=== PATIENT | female | born 1960 | race Caucasian/White ===

== ENCOUNTER 2018-04-15 09:26 | Emergency (ER) | payer OTHER ==
[~2018-04-15] VITALS: Ht 160 cm; Wt 62.6 kg
--- NOTE | ~2018-04-15 | EKG ---
[address] [address] ELECTROCARDIOGRAM REPORT Name: BOUCHRA MONTANEZ Room #: [facility]#: [id number] Admission: 04/15/18 Attend Phys: Discharge: 04/15/18 Date of : 60 Report #: [id number] THIS REPORT FOR: //name// [facility] ED Test Date: 2018-04-15 Test Time: 09:58:32 Pat Name: BOUCHRA MONTANEZ Department: Room: Gender: F Coating Machine Operator: latrice : 1960 Requested By: Mirna Vidal Order Number: [id number] MD: Aditya Cyr Measurements Intervals [place] Rate: 98 P: 54 ND: 139 QRS: 41 QRSD: 98 T: 33 QT: 355 QTc: 454 Interpretive Statements Sinus rhythm Normal tracing No previous ECG available for comparison Electronically Signed On 04-15-2018 13:12:42 CDT by Aditya Cyr [email or web address] <ELECTRONICALLY SIGNED> By: Aditya Cyr MD, [facility] 04/15/18 [id number] [id number] Aditya Cyr MD, FAC /EPI
[2018-04-15 09:55] LABS: URINE BILIRUBIN NEGATIVE (Negative); URINE BLOOD 3+ (Negative); URINE CLARITY CLEAR; URINE COLOR YELLOW; URINE GLUCOSE-RANDOM* TRACE (Negative); URINE KETONES NEGATIVE (Negative); URINE NITRITE-REFLEX NEGATIVE (Negative); URINE PROTEIN (DIPSTICK) NEGATIVE (Negative); URINE UROBILINOGEN 0.2 E.U./dl (0.2-1.0)
[2018-04-15 09:58] LABS: URINE LEUKOCYTES-REFLEX 1+ (Negative)
[2018-04-15 10:14] LABS: BACTERIA-REFLEX None Seen /HPF (None Seen); CASTS None Seen /LPF (None Seen); CRYSTALS None Seen /LPF (None Seen); SQUAMOUS 0-3 Few /LPF (0-3); URINE WBC-REFLEX 0-5 Rare /HPF (0-5)
[2018-04-15 10:19] LABS: HEMATOCRIT 41.5 % (37.0-47.0); HEMOGLOBIN 14.4 gm/dL (12.0-15.0); MCH 29.8 pg (26.0-34.0); MCHC 34.7 g/dL (28.0-37.0); RBC 4.83 mil/uL (4.20-5.00); RDW 12.9 % (10.5-14.5); WBC 6.3 thou/uL (4.0-11.0)
[2018-04-15 10:27] LABS: ANION GAP 9 mmol/L (7-16); BUN 13 mg/dL (7-18); CALCIUM 9.8 mg/dL (8.5-10.1); CHLORIDE 103 mmol/L (98-107); CO2 27 mmol/L (21-32); GLUCOSE 117 mg/dL (74-106); POTASSIUM 3.8 mmol/L (3.5-5.1); SODIUM 139 mmol/L (136-145)
[2018-04-15 10:36] LABS: ALBUMIN 4.5 g/dL (3.4-5.0); LIPASE 366 U/L (73-393); SGOT 21 U/L (15-37); SGPT 34 U/L (30-65); TOTAL BILIRUBIN 0.4 mg/dL (<0.1-1.0); TOTAL PROTEIN 8.1 g/dL (6.4-8.2); TROPONIN-I <0.06 ng/mL (<0.06)
[2018-04-15] MEDS ORDERED: NORCO 5-325 TA1 EACH PO (12:49)
[2018-04-15 13:06] VITALS: BP 149/92
== END 2018-04-15 13:07 | disposition home or self-care (01) ==
LOC: ER 09:26
PROVIDERS: Student in an Organized Health Care Education/Training Program
DX: N20.0 Calculus of kidney (principal); R00.0 Tachycardia, unspecified; H35.30 Unspecified macular degeneration; Z88.0 Allergy status to penicillin; Z88.6 Allergy status to analgesic agent; Z90.710 Acquired absence of both cervix and uterus; Z98.890 Other specified postprocedural states

== ENCOUNTER → 2018-12-29 | Outpatient (CLI) | payer OTHER ==
[~2018-12-29] MED LIST: NORCO 5-325 TA1 EACH PO
== END ==
LOC: CAT 07:55
DX: Z01.812 Encounter for preprocedural laboratory examination (principal); I70.0 Atherosclerosis of aorta; M47.814 Spondylosis without myelopathy or radiculopathy, thoracic region; Z88.8 Allergy status to other drugs, medicaments and biological substances; Z88.0 Allergy status to penicillin; Z82.49 Family history of ischemic heart disease and other diseases of the circulatory system

== ENCOUNTER 2019-02-07 11:18 | Outpatient (CLI) | payer OTHER ==
[~2019-02-07] VITALS: Ht 157.5 cm; Wt 61.2 kg
[2019-02-07] VITALS (9 sets, daily range): BP systolic 11–188; BP diastolic 60–93
[2019-02-07 11:47] LABS: HEMATOCRIT 41.8 % (37.0-47.0); HEMOGLOBIN 14.4 gm/dL (12.0-15.0); MCH 29.5 pg (26.0-34.0); MCHC 34.4 g/dL (28.0-37.0); MCV 85.7 fL (80.0-100.0); RBC 4.88 mil/uL (4.20-5.00); RDW 12.5 % (10.5-14.5)
[2019-02-07 12:00] LABS: CALCIUM 9.8 mg/dL (8.5-10.1); POTASSIUM 3.8 mmol/L (3.5-5.1)
[2019-02-07] MEDS ORDERED: LOSARTAN POTAS100 MG PO (12:07)
[2019-02-07] MEDS ORDERED: PROZAC20 MG PO (12:08)
[2019-02-07] MEDS ORDERED: CRESTOR20 MG PO (12:08)
[2019-02-07] MEDS ORDERED: ZYRTEC10 M5 PO (12:09)
[2019-02-07] MEDS ORDERED: TRAMADOL 50 MG50 MG PO (12:09)
[2019-02-07] MEDS ORDERED: FLONASE 0.05%50 MCG NASAL (12:10)
[2019-02-07] MEDS ORDERED: PLAVIX 75 MG TA75 M1 PO (16:36)
--- NOTE | 2019-02-07 16:51 | NUR ---
PT IS DR. MOORE ABDOMINAL ANGIOGRAM WITH LOWER EXTREMITY POSSIBLE TRANSLUMINAL ANGIOPLASTY AND STENT. PT IS ALERT AND ORIENTED X4. FAMILY WITH PT AT THIS TIME. VS STABLE. LUNGS ARE CLEAR. ABDOMEN IS SOFT AND FLAT. BOWEL SOUNDS HYPOACTIVE. DENIES PAIN LYING FLAT DRESSING HAS A SMALL SIZE DROPLET OF BLOOD NOTED. NO BRUISING NOTED. PULSES 2/2 GOOD WILL CONTINUE TO ASSESS AND MONITOR NO EDEMA NOTED.
--- NOTE | 2019-02-07 18:42 | NUR ---
PT DISCHARGE INSRCTIONS GIVEN TO PT VERBALIZES UNDERSTANDING AND DC TO HOME. FAMILY WITH PT AND ALL BELONGSING WITH PT. TAKEN OUT VIA WHEEL CHAIR WITH FAMILY. NO CONCERNS OR ISSUES NOTED.
== END 2019-02-07 19:22 | disposition home or self-care (01) ==
LOC: SPEC 11:18 → 2N 15:48 → SPEC 19:22
PROVIDERS: Nuclear Medicine Nuclear Cardiology
DX: I70.212 Atherosclerosis of native arteries of extremities with intermittent claudication, left leg (principal); I70.1 Atherosclerosis of renal artery; I10 Essential (primary) hypertension; E78.5 Hyperlipidemia, unspecified; K21.9 Gastro-esophageal reflux disease without esophagitis; Z90.710 Acquired absence of both cervix and uterus; Z87.891 Personal history of nicotine dependence; Z98.890 Other specified postprocedural states; Z79.899 Other long term (current) drug therapy; Z88.0 Allergy status to penicillin; Z88.8 Allergy status to other drugs, medicaments and biological substances; Z87.442 Personal history of urinary calculi
CPT/HCPCS: 10081

== ENCOUNTER → 2019-11-22 | Outpatient (CLI) | payer OTHER ==
[~2019-11-22] MED LIST changes: +ASA81BEC PO; +BENICAR40 MG PO; +CRESTOR20 MG PO; +FLONASE 0.05%50 MCG NASAL; +LOSARTAN POTAS100 MG PO; +PLAVIX 75 MG TA75 M1 PO; +PROZAC20 MG PO; +TRAMADOL 50 MG50 MG PO; +ZYRTEC10 M5 PO
== END ==
LOC: SJCVCIMAG 08:16
DX: I70.202 Unspecified atherosclerosis of native arteries of extremities, left leg (principal); I10 Essential (primary) hypertension; I25.10 Atherosclerotic heart disease of native coronary artery without angina pectoris; E78.00 Pure hypercholesterolemia, unspecified; H35.059 Retinal neovascularization, unspecified, unspecified eye

== ENCOUNTER 2019-11-26 11:43 | Observation (INO) | payer OTHER ==
[~2019-11-26] VITALS: Ht 160 cm; Wt 62.1 kg
[2019-11-26] VITALS (8 sets, daily range): BP systolic 124–174; BP diastolic 61–91
[~2019-11-26 11:43] MED LIST changes: -ASA81BEC PO; -BENICAR40 MG PO
[2019-11-26] MEDS ORDERED: ASA81BEC PO (12:27)
[2019-11-26] MEDS ORDERED: BENICAR40 MG PO (12:29)
[2019-11-26 13:04] LABS: HEMATOCRIT 42.1 % (37.0-47.0); HEMOGLOBIN 14.5 gm/dL (12.0-15.0); MCH 29.7 pg (26.0-34.0); MCHC 34.5 g/dL (28.0-37.0); RBC 4.9 mil/uL (4.20-5.00); RDW 13.2 % (10.5-14.5); WBC 5.8 thou/uL (4.0-11.0)
[2019-11-26 13:06] LABS: CALCIUM 9.6 mg/dL (8.5-10.1); POTASSIUM 3.9 mmol/L (3.5-5.1)
--- NOTE | 2019-11-26 17:59 | NUR ---
PATIENT ARRIVED TO THE UNIT FROM CATHLAB, ALERT AND ORIENTED X4. POST CARDIAC CATH VS AND ASSESSMENT CHARTED. REMAINS IN BEDREST UNTIL 1830 AND WILL CONTINUE TO MONITOR.
== END 2019-11-26 19:15 | disposition home or self-care (01) ==
LOC: CATH 11:43 → 2N 16:04 → ENTRNSPT 19:06 → 2N 19:15 → CATH 19:15
PROVIDERS: ADMIT Nuclear Medicine Nuclear Cardiology
DX: I70.212 Atherosclerosis of native arteries of extremities with intermittent claudication, left leg (principal); I10 Essential (primary) hypertension
CPT/HCPCS: 10081

== ENCOUNTER → 2020-04-08 | Outpatient (CLI) | payer OTHER ==
[~2020-04-08] MED LIST changes: +ASA81BEC PO; +BENICAR40 MG PO
== END ==
LOC: RAD 14:56
PROVIDERS: ATTEND Family Medicine
DX: M41.84 Other forms of scoliosis, thoracic region (principal); R07.9 Chest pain, unspecified; V89.2XXA Person injured in unspecified motor-vehicle accident, traffic, initial encounter; Y93.89 Activity, other specified; Y92.89 Other specified places as the place of occurrence of the external cause; Y99.8 Other external cause status

== ENCOUNTER → 2020-06-24 | Outpatient (CLI) | payer OTHER | LOC: SJCVCIMAG 08:17 | PROVIDERS: ATTEND Internal Medicine Cardiovascular Disease | DX: I70.203 Unspecified atherosclerosis of native arteries of extremities, bilateral legs (principal); I65.23 Occlusion and stenosis of bilateral carotid arteries; R94.31 Abnormal electrocardiogram [ECG] [EKG]; I77.9 Disorder of arteries and arterioles, unspecified; I25.10 Atherosclerotic heart disease of native coronary artery without angina pectoris; I10 Essential (primary) hypertension; H35.059 Retinal neovascularization, unspecified, unspecified eye; E78.00 Pure hypercholesterolemia, unspecified; Z79.899 Other long term (current) drug therapy; Z87.891 Personal history of nicotine dependence ==

== ENCOUNTER → 2020-06-30 | Outpatient (CLI) | payer OTHER ==
[~2020-06-30] VITALS: Ht 160 cm; Wt 63.5 kg
[~2020-06-30] MED LIST changes: +PLAVIX 75 MG TA75 MG PO
[2020-06-30 07:09] VITALS: BP 166/92
[2020-06-30 07:34] LABS: HEMATOCRIT 40.2 % (37.0-47.0); HEMOGLOBIN 13.6 gm/dL (12.0-15.0); MCH 29.5 pg (26.0-34.0); MCHC 33.8 g/dL (28.0-37.0); MCV 87.3 fL (80.0-100.0); RBC 4.61 mil/uL (4.20-5.00); RDW 13.1 % (10.5-14.5); WBC 4.7 thou/uL (4.0-11.0)
[2020-06-30 07:41] LABS: CALCIUM 9.2 mg/dL (8.5-10.1); CREATININE 1.1 mg/dL (0.6-1.0); POTASSIUM 3.7 mmol/L (3.5-5.1)
--- NOTE | 2020-06-30 17:54 | CATHLAB ---
[facility] [place] [place] [address] INVASIVE PROCEDURE REPORT Name: BOUCHRA MONTANEZ Room #: [facility].#: [id number] Admission: 06/30/20 Attend Phys: Charles Dee MD Discharge: Date of : 60 Report #: [id number] THIS REPORT FOR: cc: Sidney Del Castillo MD, Neal A. MD Mancuso, Gerald M. MD [facility] ~ APPROVED REPORT Study performed: 06/30/2020 10:11:37 Patient Details Patient Status: Out-Patient Room #: The patient is a 60 year-old female Event Personnel Doc Rich Computer Game Tester, Any Yu RT(R)() Gun StockerAdriana Ja'net RTR Scrub, Brenna Laguerre RN mis manager Narrative The RFG^ was infiltrated with 2% Lidocaine subcutaneous anesthesia. A SHEATH BRITE-TIP 6F X 11CM ([id number]) sheath was inserted into the RFA 5F^. Coronary angiography was performed using coronary diagnostic catheters. The right coronary system was accessed and visualized with a JR4 catheter. The left coronary system was accessed and visualized with a JL4 catheter. The left ventricle was accessed and visualized with a PIGTAIL catheter. The patient tolerated the procedure well and there were no complications associated with the procedure. There was no hematoma. Total MGycm2: 37606.58. Total mGy: 794. Total Fluoro: 17.45min. Total contrast: 216. Intraoperative Conscious Sedation Fentanyl 200 mcg Versed 4.0 mg Fluoro Time: 17.45 minutes Dose: DAP 66328.60 cGycm2 Contrast Type and Amount: Omnipaque 85 ml Hemodynamics The aortic pressure is 139/54 mmHg with a mean of 68 mmHg. The left ventricular pressure is 137/8 mmHg with a mean of mmHg. The left ventricular end diastolic pressure is 20 mmHg. PCI Technique Lesion [facility] [address] [place] [address] INVASIVE PROCEDURE REPORT Name: BOUCHRA MONTANEZ [id number] Admission: 06/30/20 Attend Phys: Charles Dee, Discharge: Date of : 60 Report #: [id number] Percutaneous coronary intervention was performed on the Superficial Femoral. Conclusion #1. Hyperdynamic LV function EF 65% #2 left main with mild ostial disease 30% giving rise to LAD and circumflex. #3 LAD with diffuse disease eccentric 40% mid vessel lesion diffuse disease distally around the apex. #4 circumflex OM nondominant with mild disease. #5 the dominant right coronary artery relatively small in caliber but anatomically dominant no occlusive disease. Recommendations and plan: Continue aggressive risk factor modification no indication for coronary intervention. <ELECTRONICALLY SIGNED> By: Doc Rich MD, FAC 06/30/201753 53 53 Doc Rich MD, [facility] /INF
== END | disposition home or self-care (01) ==
LOC: CATH 06:46
PROVIDERS: ATTEND Nuclear Medicine Nuclear Cardiology
DX: I25.10 Atherosclerotic heart disease of native coronary artery without angina pectoris (principal); I70.212 Atherosclerosis of native arteries of extremities with intermittent claudication, left leg; I70.1 Atherosclerosis of renal artery; I10 Essential (primary) hypertension; E78.00 Pure hypercholesterolemia, unspecified; Z98.890 Other specified postprocedural states; Z79.899 Other long term (current) drug therapy; Z88.0 Allergy status to penicillin; Z88.8 Allergy status to other drugs, medicaments and biological substances; Z79.82 Long term (current) use of aspirin

== ENCOUNTER → 2020-10-14 | Outpatient (CLI) | payer OTHER | LOC: SJCVCIMAG 10-07 08:31 | PROVIDERS: ATTEND Nuclear Medicine Nuclear Cardiology | DX: I70.202 Unspecified atherosclerosis of native arteries of extremities, left leg (principal); I77.9 Disorder of arteries and arterioles, unspecified; I25.10 Atherosclerotic heart disease of native coronary artery without angina pectoris; I10 Essential (primary) hypertension; E78.00 Pure hypercholesterolemia, unspecified; H35.60 Retinal hemorrhage, unspecified eye; Z87.442 Personal history of urinary calculi; Z87.891 Personal history of nicotine dependence; Z88.6 Allergy status to analgesic agent; Z88.0 Allergy status to penicillin; Z79.82 Long term (current) use of aspirin; Z79.899 Other long term (current) drug therapy ==

== ENCOUNTER → 2020-12-10 | Outpatient (CLI) | payer OTHER | LOC: MRI 07:56 | PROVIDERS: ATTEND Family Medicine | DX: M70.61 Trochanteric bursitis, right hip (principal); M76.9 Unspecified enthesopathy, lower limb, excluding foot ==

== ENCOUNTER → 2021-05-06 | Outpatient (CLI) | payer OTHER | LOC: SJCVCIMAG 08:11 | PROVIDERS: ATTEND Nuclear Medicine Nuclear Cardiology | DX: I70.203 Unspecified atherosclerosis of native arteries of extremities, bilateral legs (principal); M79.604 Pain in right leg; M79.605 Pain in left leg; I25.10 Atherosclerotic heart disease of native coronary artery without angina pectoris; I10 Essential (primary) hypertension; E78.00 Pure hypercholesterolemia, unspecified; I77.9 Disorder of arteries and arterioles, unspecified; E78.5 Hyperlipidemia, unspecified; Z79.82 Long term (current) use of aspirin; Z79.899 Other long term (current) drug therapy; Z87.891 Personal history of nicotine dependence; Z88.0 Allergy status to penicillin; Z88.6 Allergy status to analgesic agent ==

== ENCOUNTER → 2021-05-22 | Outpatient (CLI) | payer OTHER ==
[~2021-05-22] VITALS: Ht 160 cm; Wt 64.9 kg
[2021-05-22 07:51] VITALS: BP 164/73
[2021-05-22 08:19] LABS: HEMOGLOBIN 13.3 gm/dL (12.0-15.0); MCH 29.5 pg (26.0-34.0); MCHC 34.2 g/dL (28.0-37.0); MCV 86.2 fL (80.0-100.0); RBC 4.52 mil/uL (4.20-5.00); RDW 13.4 % (10.5-14.5); WBC 5.3 thou/uL (4.0-11.0)
[2021-05-22 08:27] LABS: CALCIUM 9.1 mg/dL (8.5-10.1); POTASSIUM 3.8 mmol/L (3.5-5.1)
== END | disposition home or self-care (01) ==
LOC: CATH 06:36
PROVIDERS: ATTEND Nuclear Medicine Nuclear Cardiology
DX: I70.248 Atherosclerosis of native arteries of left leg with ulceration of other part of lower leg (principal); M79.605 Pain in left leg; I70.1 Atherosclerosis of renal artery; I10 Essential (primary) hypertension; I25.10 Atherosclerotic heart disease of native coronary artery without angina pectoris; E78.5 Hyperlipidemia, unspecified; K21.9 Gastro-esophageal reflux disease without esophagitis; Z98.890 Other specified postprocedural states; Z79.899 Other long term (current) drug therapy; Z88.0 Allergy status to penicillin; Z88.8 Allergy status to other drugs, medicaments and biological substances